=== PATIENT | female | born 1940 | race Caucasian/White ===

== ENCOUNTER 2016-06-21 08:40 | Day surgery (SDC) | payer OTHER ==
[2016-06-20 13:58] VITALS: BMI 17.2
--- NOTE | 2016-06-21 12:05 | HP ---
Past Medical History - Primary Care Physician PCP:: Ralf Simms - Admission Chief Complaint: post menopausal vaginal bleeding History of Present Illness: 76 yo f with hx breast ca, on tamoxifen, has vaginal bleeding ,admitted for hysteroscopy and d/c. rba discussed History Source: Patient Limitations to Obtaining History: Language Barrier - Past Medical History Cardiovascular: Yes: HTN, Hyperlipdemia - Past Surgical History Hx Myomectomy: No Hx Transabdominal Cerclage: No - Smoking History Smoking history: Never smoked Have you smoked in the past 12 months: No Aproximately how many cigarettes per day: 0 - Alcohol/Substance Use Hx Alcohol Use: No - Social History History of Recent Travel: No Home Medications - Allergies Allergies/Adverse Reactions: Allergies Allergy/AdvReac Type Severity Reaction Status Date / Time No Known Allergies Allergy Verified 04/29/16 14:25 - Home Medications Home Medications: Ambulatory Orders Atorvastatin Ca [Lipitor] 10 mg PO DAILY 09/01/14 Bimatoprost [Lumigan] 1 drop OU DAILY 09/01/14 Folic Acid - 1 mg PO DAILY 09/01/14 Aspirin [ASA -] 81 mg PO DAILY 04/29/16 Tamoxifen Citrate 20 mg PO DAILY 04/29/16 Review of Systems - Review of Systems Constitutional: reports: No Symptoms Eyes: reports: No Symptoms HENT: reports: No Symptoms Neck: reports: No Symptoms Cardiovascular: reports: No Symptoms Respiratory: reports: No Symptoms Gastrointestinal: reports: No Symptoms Genitourinary: reports: Vaginal Bleeding Breasts: reports: No Symptoms Reported Musculoskeletal: reports: No Symptoms Integumentary: reports: No Symptoms Endocrine: reports: No Symptoms Hematology/Lymphatic: reports: No Symptoms Psychiatric: reports: No Symptoms Physical Exam-LEG BREAKER Vital Signs: Vital Signs Temperature 97.6 F 06/21/16 09:30 Pulse Rate 78 06/21/16 09:30 Respiratory Rate 18 06/21/16 09:30 Blood Pressure 156/76 06/21/16 09:30 O2 Sat by Pulse Oximetry (%) 98 06/21/16 09:30 Constitutional: Yes: Well Nourished, No Distress, Calm Eyes: Yes: WNL, Conjunctiva Clear, EOM Intact HENT: Yes: WNL, Atraumatic, Normocephalic Neck: Yes: WNL, Supple, Trachea Midline Cardiovascular: Yes: WNL, Regular Rate and Rhythm Respiratory: Yes: WNL, Regular, CTA Bilaterally Gastrointestinal: Yes: WNL Renal/: Yes: WNL Pelvis: Yes: WNL External Genitalia: Yes: Normal Internal Exam Deferred: No Vaginal Exam: Yes: Other (atrophic) Cervix: Yes: Normal Uterus: Yes: Normal Adnexa: Not Palpable: Left, Right Breast(s): Yes: WNL Musculoskeletal: Yes: WNL Extremities: Yes: WNL Edema: No Integumentary: Yes: WNL Neurological: Yes: WNL, Alert, Oriented ...Motor Strength: WNL Psychiatric: Yes: WNL, Alert, Oriented Problem List - Problem (1) Postmenopausal vaginal bleeding Code(s): N95.0 - POSTMENOPAUSAL BLEEDING (2) Breast cancer Code(s): C50.919 - MALIGNANT NEOPLASM OF UNSP SITE OF UNSPECIFIED FEMALE BREAST Qualifiers: Patient gender: female Assessment/Plan for hysteroscopy d/c r/o endometrial cancer
[2016-06-21] MEDS ORDERED: PROPOFOL 20 ML ONE (12:09)
[2016-06-21] MEDS ORDERED: LACTATED RINGERS SOLUTION 1,000 ML IV SCH (12:45)
[2016-06-21] MEDS ORDERED: ONDANSETRON 4 MG/2 ML VIAL IVPUSH PRN (12:45)
[2016-06-21] MEDS ORDERED: oxyCODONE HCL 5 MG TABLET PO PRN ×2 (12:45→13:18)
[2016-06-21] MEDS ORDERED: IBUPROFEN 800 MG/8 ML IJ IVPB PRN (13:18)
[2016-06-21] MEDS ORDERED: IBUPROFEN 600 MG TABLET (FP) PO PRN (13:18)
[2016-06-21] MEDS ORDERED: ONDANSETRON 4 MG/2 ML VIAL IVPB PRN (13:18)
[2016-06-21] MEDS ORDERED: ELECTROLYTE-148 SOLN 1,000 ML IV SCH (13:30)
[2016-06-21 13:35] VITALS: TEMP 98.9
[2016-06-21 14:31] VITALS: BP 167/78; PULSE 68
--- NOTE | 2016-06-22 08:11 | OP ---
DATE OF OPERATION: 06/21/2016 PREOPERATIVE DIAGNOSIS: Postmenopausal bleeding. POSTOPERATIVE DIAGNOSIS: Postmenopausal bleeding. PROCEDURE: Hysteroscopy, dilatation and curettage, and endometrial polypectomy. SURGEON: Ralf Simms MD ANESTHESIA: General. ANESTHESIOLOGIST: Mack Chavis MD ESTIMATED BLOOD LOSS: 15 mL. DESCRIPTION OF PROCEDURE: The patient was taken to the operating room, and under adequate general anesthesia, examination under anesthesia revealed external genitalia to be normal. Vagina was normal. Cervix was clean, no lesion. Uterus was normal sized. Adnexa, no masses were palpable. Then, with a weighted speculum in the vagina, anterior lip of the cervix was grasped with a single-tooth tenaculum, and endocervical curetting was done. Uterine cavity was sounded to 7 cm. Then, hysteroscope was introduced. Visualization of the endocervical canal appeared to be normal. Endometrium was atrophic. There was a large polyp, approximately 3 cm, seen at the fundal area of the uterus. Both cornual regions were visualized. No other abnormality was seen. Then, cervix was gradually dilated with Hegar dilator, and the endometrial polyp was removed, and then reintroduction of hysteroscope into the uterus showed no other polyp, and polyp was removed in its entirety. No active bleeding was seen. Patient tolerated the procedure well, left the OR in good condition. RALF SIMMS M.D. [id number]
--- NOTE | 2016-06-22 12:37 | PATH ---
Surgical Pathology Report Patient Name: DESMOND HUITRON [facility]. Rec. #: [id number] /Age/Gender: 1940 (Age: 76) / F Account: [id number] Location: [facility] Taken: 06/21/2016 Received: 06/21/2016 Reported: 06/22/2016 Physicians: Ralf Simms M.D. Specimen(s) Received A: ENDOCERVICAL CURETTINGS B: ENDOMETRIAL POLYPS C: ENDOMETRIAL CURETTINGS Clinical History Postmenopausal bleeding Final Diagnosis A. ENDOCERVIX, CURETTING: BENIGN CERVICAL TISSUE B. ENDOMETRIUM, POLYPECTOMY: BENIGN ENDOMETRIAL POLYP C. ENDOMETRIUM, CURETTING: ATROPHIC ENDOMETRIUM. NO ENDOMETRIAL HYPERPLASIA OR CARCINOMA IDENTIFIED. Electronically Signed Luca Aleman M.D. Gross Description A. Received in formalin, labeled "endocervical curetting," is a 0.7 x 0.5 x 0.1 cm aggregate of guerrero soft tissue fragments admixed with blood-tinged mucous. The formalin is filtered and the specimen is entirely submitted in one cassette. B. Received in formalin, labeled "endometrial polyps," and are 4 pink-guerrero, polypoid portions of soft tissue ranging from 0.5-1.7 cm in greatest dimension. The specimens are submitted in toto in one cassette. C. Received in formalin, labeled "endometrial curettings," is a 1.1 x 1.0 x 0.2 cm aggregate of guerrero-brown soft tissue fragments. The formalin is filtered and the specimen is entirely submitted in one cassette. 06/21/201606/21/2016
== END 2016-06-21 14:20 | disposition home or self-care (01) ==
LOC: JASU-SURG 08:40
PROVIDERS: ATTEND Obstetrics & Gynecology
PROC: 0UB98ZX Excision of Uterus, Via Natural or Artificial Opening Endoscopic, Diagnostic (ICD-10-PCS; principal; 2016-06-21 11:00)
PROC: 0UDB8ZX Extraction of Endometrium, Via Natural or Artificial Opening Endoscopic, Diagnostic (ICD-10-PCS; 2016-06-21 11:00)
DX: N95.0 Postmenopausal bleeding (principal); N84.0 Polyp of corpus uteri
CPT/HCPCS: 88305-TC; 94760

== ENCOUNTER 2016-08-17 12:14 | Emergency (ER) | payer OTHER ==
[2016-08-17 12:19] VITALS: TEMP 98.2; BMI 16.8
--- NOTE | 2016-08-17 12:55 | PDOC ---
History of Present Illness - General Chief Complaint: Lightheaded Stated Complaint: DIZZINESS Time Seen by Provider: 08/17/16 12:49 History Source: Patient Exam Limitations: Language Barrier (Juana, the RN, was utilized as a marker delivery. ) - History of Present Illness Initial Comments: CHIEF COMPLAINT: 76 y/o afebrile female with PMH HLD and postmenopausal bleeding c/o vaginal bleeding for over a month. HISTORY OF PRESENT ILLNESS: The patient had a D&C performed by Dr. Simms on . She states she has had vaginal bleeding every day since then, changing her maxi pad 3x per day. She states this morning she began feeling a little lightheaded and that's why she decided to come in. She denies f/c, n/v/d, fall , LOC, CP, SOB, palpitations, abd pain, back pain. Vital signs on arrival are within normal limits. REVIEW OF SYSTEMS: GENERAL/CONSTITUTIONAL: No fever/chills. No weakness. No weight change. HEAD, EYES, EARS, NOSE AND THROAT: No change in vision. No ear pain or discharge. No sore throat. CARDIOVASCULAR: No chest pain or shortness of breath. RESPIRATORY: No cough, wheezing, or hemoptysis. GASTROINTESTINAL: No abd pain, nausea, vomiting, diarrhea. +vaginal bleeding GENITOURINARY: No dysuria, frequency, or change in urination. MUSCULOSKELETAL: No joint or muscle swelling or pain. No neck or back pain. SKIN: No rash or easy bruising. NEUROLOGIC: No headache, vertigo, loss of consciousness, or loss of sensation. PHYSICAL EXAM: GENERAL: The patient is awake, alert, and fully oriented, in no acute distress. The patient is thin, well appearing and ambulatory. HEAD: Normal with no signs of trauma. ENT: Pupils equal, round and reactive to light, extraocular movements intact, sclera anicteric, conjunctiva pink. Neck supple. LUNGS: Clear to auscultation bilaterally. Normal excursion. No respiratory distress or use of accessory muscles. CV: RRR, S1/S2, no MRG. Cap refill < 2 sec. ABDOMEN: Soft, non-distended, non-tender even to deep palpation, no hepatomegaly or splenomegaly, no masses. VAGINAL: Deferred EXTREMITIES: Normal range of motion, no edema. NEUROLOGICAL: Normal speech, normal gait. CN II-XII grossly intact. PSYCH: Normal mood, normal affect. SKIN: Warm, dry, normal turgor, no rashes or lesions noted. Past History - Past Medical History Allergies/Adverse Reactions: Allergies Allergy/AdvReac Type Severity Reaction Status Date / Time No Known Allergies Allergy Verified 08/17/16 12:19 Home Medications: Ambulatory Orders Atorvastatin Ca [Lipitor] 10 mg PO DAILY 09/01/14 Aspirin [ASA -] 81 mg PO DAILY 04/29/16 Cancer: Yes Cardiac Disorders: Yes HTN: Yes Hypercholesterolemia: Yes - Psycho/Social/Smoking Cessation Hx Suicidal Ideation: No Smoking History: Never smoked Have you smoked in the past 12 months: No Number of Cigarettes Smoked Daily: 0 Hx Alcohol Use: No Drug/Substance Use Hx: No Substance Use Type: None Hx Substance Use Treatment: No *Physical Exam - Vital Signs Last Vital Signs Temp Pulse Resp BP Pulse Ox 98.2 F 90 20 139/83 97 08/17/16 12:15 08/17/16 12:15 08/17/16 12:15 08/17/16 12:15 08/17/16 12:15 Heart Score/ECG Review - ECG Intrepretation Comment:: Twelve-lead EKG was performed and reviewed by Dr. uRiz. There is normal sinus rhythm with a normal rate. The axis is normal. The intervals are normal. There are no ST or T wave abnormalities. Impression: Normal twelve-lead EKG ED Treatment Course - LABORATORY CBC & Chemistry Diagram: 08/17/16 13:50 08/17/16 13:50 Medical Decision Making - Medical Decision Making A/P: 76 y/o afebrile female with post menopausal vaginal bleeding and dizziness today. Plan is as follows: 1. EKG 2. Labs 3. Transvaginal Ultrasound EKG normal Labs normal Transvaginal Ultrasound IMPRESSION: Fundal fibroid. Thickening and irregularity of the endometrium. Endometrial malignancy cannot be excluded. Right adnexal cyst. Gave the patient all of her results. She states she feels well with no weakness or lightheadedness. Explained to both her and her daughter she needs to f/u with Dr. Simms as soon as possible and return to the ER with any worsening or concerning symptoms. The patient verbalizes understanding of all instructions, has no further questions and is awaiting discharge. *DC/Admit/Observation/Transfer Diagnosis at time of Disposition: Postmenopausal vaginal bleeding - Discharge Dispostion Disposition: HOME Condition at time of disposition: Good - Referrals Referrals: Torey Enamorado MD [Primary Care Provider] - Ralf Simms MD [Staff Physician] - - Patient Instructions Printed Discharge Instructions: DI for Vaginal Bleeding Additional Instructions: Discharge Instructions: -Please follow up with Dr. Simms as soon as possible -REturn to the ER with any worsening or concerning symptoms
[2016-08-17 14:30] LABS: BASOPHIL 0.7 % (0-2.0); EOSINOPHIL 0.5 % (0-4.5); MCH 31.9 pg (25.7-33.7); MCHC 33.4 g/dl (32.0-36.0); MEAN CELL VOLUME 95.5 fl (80-96); MEAN PLT VOLUME 9.4 fl (7.5-11.1); NEUTROPHILS 69.3 % (42.8-82.8); PLATELET COUNT 231 K/MM3 (134-434); RDW 13.8 % (11.6-15.6); WHITE BLOOD COUNT 5.7 K/mm3 (4.0-10.0)
[2016-08-17 14:37] LABS: ALBUMIN 3.7 g/dl (3.4-5.0); ALK PHOS 78 U/L (45-117); ANION GAP 8 (8-16); BILIRUBIN,TOTAL 0.4 mg/dL (0.2-1.0); CALCIUM 8.8 mg/dL (8.5-10.1); CO2 28 mmol/L (21-32); CREATININE 0.9 mg/dL (0.55-1.02); GLUCOSE,RANDOM 89 mg/dL (74-106); SGOT/AST 24 U/L (15-37); SGPT/ALT 18 U/L (12-78); TOT PROT 7.2 g/dl (6.4-8.2)
[2016-08-17 14:48] LABS: INR 0.98 (0.82-1.09); PROTHROMBIN TIME (PATIENT) 10.8 SEC (9.98-11.88)
[2016-08-17 15:38] VITALS: BP 154/88; PULSE 60
--- NOTE | 2016-08-18 17:14 | EKG ---
Test Reason : Blood Pressure : / mmHG Vent. Rate : 074 BPM Atrial Rate : 074 BPM P-R Int : 140 ms QRS Dur : 076 ms QT Int : 426 ms P-R-T Axes : 077 -23 065 degrees QTc Int : 472 ms NORMAL SINUS RHYTHM NORMAL ECG WHEN COMPARED WITH ECG OF 27-SEP-2015 22:26, NO SIGNIFICANT CHANGE WAS FOUND Confirmed by JAIR BRENNAN MD ([id number]) on 08/18/2016 5:14:18 PM Referred By: Confirmed By:JAIR BRENNAN MD
== END 2016-08-17 16:09 | disposition home or self-care (01) ==
LOC: JER 12:14
DX: N95.0 Postmenopausal bleeding (principal); I10 Essential (primary) hypertension; I51.9 Heart disease, unspecified; E78.00 Pure hypercholesterolemia, unspecified; Z85.9 Personal history of malignant neoplasm, unspecified
CPT/HCPCS: 36415; 76830-TC; 80053; 85025; 85610; 86850; 86900; 86901; 93005; 93010; 99283-25

== ENCOUNTER 2016-09-26 09:27 | Emergency (ER) | payer OTHER ==
[2016-09-26 09:44] VITALS: TEMP 98.1; BMI 16.9
[2016-09-26 10:37] LABS: EOSINOPHIL 1.3 % (0-4.5); MCH 31.6 pg (25.7-33.7); MCHC 33.3 g/dl (32.0-36.0); MEAN PLT VOLUME 8.9 fl (7.5-11.1); NEUTROPHILS 74.3 % (42.8-82.8); PLATELET COUNT 233 K/MM3 (134-434); RDW 13.9 % (11.6-15.6); WHITE BLOOD COUNT 5.9 K/mm3 (4.0-10.0)
[2016-09-26 10:38] LABS: STOOL FOR OCCULT BLOOD NEGATIVE (NEGATIVE)
[2016-09-26 10:52] LABS: URINE APPEARANCE CLEAR; URINE BILIRUBIN NEGATIVE (NEGATIVE); URINE COLOR LTYELLOW; URINE GLUCOSE (UA) NEGATIVE (NEGATIVE); URINE KETONE NEGATIVE (NEGATIVE); URINE LEUK ESTERASE NEGATIVE (NEGATIVE); URINE NITRITE NEGATIVE (NEGATIVE); URINE PROTEIN NEGATIVE (NEGATIVE); URINE UROBILINOGEN NEGATIVE E.U./dl (0.2-1.0)
[2016-09-26 10:53] LABS: URINE BLOOD 1+ (NEGATIVE)
[2016-09-26 10:56] LABS: URINE MUCUS RARE; URINE RBC 2 /hpf (0-3); URINE WBC <1 /hpf (3-5)
[2016-09-26 11:01] LABS: ALBUMIN 3.6 g/dl (3.4-5.0); ALK PHOS 68 U/L (45-117); ANION GAP 8 (8-16); BILIRUBIN,TOTAL 0.5 mg/dL (0.2-1.0); CALCIUM 8.6 mg/dL (8.5-10.1); CO2 27 mmol/L (21-32); CREATININE 0.9 mg/dL (0.55-1.02); GLUCOSE,RANDOM 105 mg/dL (74-106); SGOT/AST 20 U/L (15-37); SGPT/ALT 15 U/L (12-78); TOT PROT 6.9 g/dl (6.4-8.2)
[2016-09-26 11:07] LABS: INR 0.99 (0.82-1.09); PROTHROMBIN TIME (PATIENT) 10.9 SEC (9.98-11.88)
--- NOTE | 2016-09-26 12:41 | PDOC ---
History of Present Illness - General Chief Complaint: Lightheaded Stated Complaint: LIGHTHEADED Time Seen by Provider: 09/26/16 10:08 - History of Present Illness Initial Comments: 09/26/16 12:41 CHIEF COMPLAINT: dizziness HISTORY OF PRESENT ILLNESS: 76 yo F with hx of PMH of HTN, HLD presents to ED with lightheadedness since this morning. Patient denies any pain, fever, chills , nausea, vomiting, diarrhea, rectal bleeding, and that "I just feel a little dizzy." No recent travel or sick contacts. PAST MEDICAL HISTORY: Denies past medical history FAMILY HISTORY: Denies SOCIAL HISTORY: Denies tobacco, alcohol, illicit drug use. SURGICAL HISTORY: Denies ALLERGIES: No known drug allergies REVIEW OF SYSTEMS General/Constitutional: Denies fever or chills. Denies weakness, weight change. HEENT: Denies change in vision. Denies ear pain or discharge. Denies sore throat. Cardiovascular: Denies chest pain or shortness of breath. Respiratory: Denies cough, wheezing, or hemoptysis. Gastrointestinal: Denies nausea, vomiting, diarrhea or constipation. Denies rectal bleeding. Genitourinary: Denies dysuria, frequency, or change in urination. Musculoskeletal: Denies joint or muscle swelling or pain. Denies neck or back pain. Skin and breasts: Denies rash or easy bruising. Neurologic: "Lightheaded this morning." Denies headache, vertigo, loss of consciousness, or loss of sensation. PHYSICAL EXAM General Appearance: Well-appearing, appropriately dressed. No apparent distress , no intoxication. HEENT: EOMI, PERRLA, normal ENT inspection, normal voice, TMs normal, pharynx normal. No conjunctival pallor. No photophobia, scleral icterus. Neck: Supple. Trachea midline. No tenderness, rigidity, carotid bruit, stridor , lymphadenopathy, or thyromegaly. Respiratory/Chest: Lungs CTAB. No shortness of breath, chest tenderness, respiratory distress, accessory muscle use. No crackles, rales, rhonchi, stridor , wheezing, dullness Cardiovascular: RRR. S1, S2. Vascular Pulses: Dorsalis-Pedis (R): 2+, Dorsalis-Pedis (L): 2+ Gastrointestinal/Abdominal: Normal bowel sounds. Abdomen soft, non-distended. No tenderness or rebound tenderness. No organomegaly, pulsatile mass, guarding , hernia, hepatomegaly, splenomegaly. Musculoskeletal/Extremities: Normal inspection. FROM of all extremities, normal capillary refill. Pelvis Stable. No CVA tenderness. No tenderness to extremities, pedal edema, swelling, erythema or deformity. Integumentary: Appropriate color, dry, warm. No cyanosis, erythema, jaundice or rash Neurologic: teacher tutor II-XII intact. Fully oriented, alert. Appropriate mood/affect. Motor strength 5/5. No appreciable EOM palsy, facial droop or sensory deficit. Past History - Past Medical History Allergies/Adverse Reactions: Allergies Allergy/AdvReac Type Severity Reaction Status Date / Time No Known Allergies Allergy Verified 09/26/16 09:33 Home Medications: Ambulatory Orders Atorvastatin Ca [Lipitor] 10 mg PO DAILY 09/01/14 Meclizine HCl 25 mg PO BID PRN #10 tablet 09/26/16 Tamoxifen Citrate 20 mg PO DAILY 09/26/16 Cancer: Yes Cardiac Disorders: Yes HTN: Yes Hypercholesterolemia: Yes - Psycho/Social/Smoking Cessation Hx Suicidal Ideation: No Smoking History: Never smoked Have you smoked in the past 12 months: No Number of Cigarettes Smoked Daily: 0 Hx Alcohol Use: No Drug/Substance Use Hx: No Substance Use Type: None Hx Substance Use Treatment: No *Physical Exam - Vital Signs Last Vital Signs Temp Pulse Resp BP Pulse Ox 98.1 F 73 19 165/82 95 09/26/16 09:34 09/26/16 10:51 09/26/16 09:34 09/26/16 10:51 09/26/16 09:34 ED Treatment Course - LABORATORY CBC & Chemistry Diagram: 09/26/16 10:30 09/26/16 10:30 - ADDITIONAL ORDERS Additional order review: Laboratory Results 09/26/16 09/26/16 09/26/16 10:30 10:30 10:30 INR 0.99 Sodium 142 Potassium 4.3 Chloride 107 Carbon Dioxide 27 Anion Gap 8 BUN 13 Creatinine 0.9 Creat Clearance w eGFR > 60 Random Glucose 105 Calcium 8.6 Total Bilirubin 0.5 D AST 20 ALT 15 Alkaline Phosphatase 68 Total Protein 6.9 Albumin 3.6 Urine Color Ltyellow Urine Appearance Clear Urine pH 7.0 Ur Specific [place] 1.012 Urine Protein Negative Urine Glucose (UA) Negative Urine Ketones Negative Urine Blood 1+ H Urine Nitrite Negative Urine Bilirubin Negative Urine Urobilinogen Negative Ur Leukocyte Esterase Negative Urine RBC 2 Urine WBC <1 Ur Epithelial Cells Rare Urine Mucus Rare Stool Occult Blood Negative 09/26/16 10:30 RBC 4.09 MCV 95.0 MCHC 33.3 RDW 13.9 MPV 8.9 Neutrophils % 74.3 Lymphocytes % 18.5 D Monocytes % 4.9 Eosinophils % 1.3 D Basophils % 1.0 - RADIOLOGY Radiology Studies Ordered: Category Date Time Status HEAD CT WITHOUT CONTRAST [CT] Stat CT Scan 09/26/16 11:36 Completed CHEST PA & LAT [RAD] Stat Radiology 09/26/16 10:26 Completed CHEST PA & LAT [RAD] Stat Radiology 09/26/16 11:28 Completed Medical Decision Making - Medical Decision Making 09/26/16 12:49 76 yo F with hx of PMH of HTN, HLD presents to ED with lightheadedness since this morning. -CBC, CMP, PT/INR -UA, UCx -Guaiac -Head CT Guaiac negative 09/26/16 12:[address] results: No definite CT evidence of acute intracranial pathology. The partially imaged maxillary and ethmoid sinuses demonstrate mucosal thickening which is probably mild to moderate consistent with chronic/subacute sinusitis. -Meclizine po Advised patient to take medications as prescribed and follow up with PMD this week. Advised patient of signs and symptoms for return to ER; patient verbalized understanding and agrees to plan. *DC/Admit/Observation/Transfer Diagnosis at time of Disposition: Vertigo - Discharge Dispostion Disposition: HOME Condition at time of disposition: Stable Admit: No - Prescriptions Prescriptions: Meclizine HCl 25 mg PO BID PRN #10 tablet PRN Reason: Vertigo - Referrals Referrals: Torey Enamorado MD [Primary Care Provider] - - Patient Instructions Printed Discharge Instructions: DI for Vertigo, DI for Benign Paroxysmal Positional Vertigo Additional Instructions: Please take medication as prescribed and follow up with Dr. Enamorado this week. If you experience any shortness of breath, palpitations, headache, fever , chills, nausea, vomiting, diarrhea, or any new or worsening symptoms, please return to the ER.
[2016-09-26] MEDS ORDERED: MECLIZINE HCL 25 MG TABLET (FP) PO ONE (12:43)
[2016-09-26] MEDS ORDERED: MECLIZINE HCL 25 MG TABLET (FP) ONE (12:46)
[2016-09-26 13:28] VITALS: BP 133/76; PULSE 66
--- NOTE | 2016-09-27 23:00 | EKG ---
Test Reason : Blood Pressure : / mmHG Vent. Rate : 075 BPM Atrial Rate : 075 BPM P-R Int : 138 ms QRS Dur : 078 ms QT Int : 408 ms P-R-T Axes : 069 -30 072 degrees QTc Int : 455 ms NORMAL SINUS RHYTHM LEFT AXIS DEVIATION NONSPECIFIC ST ABNORMALITY ABNORMAL ECG WHEN COMPARED WITH ECG OF 17-AUG-2016 13:04, NO SIGNIFICANT CHANGE WAS FOUND Confirmed by KELI VITAL MD ([id number]) on 09/27/2016 11:00:25 PM Referred By: Confirmed By:KELI VITAL MD
== END 2016-09-26 14:02 | disposition home or self-care (01) ==
LOC: JER 09:27
DX: R42 Dizziness and giddiness (principal); I10 Essential (primary) hypertension; E78.00 Pure hypercholesterolemia, unspecified
CPT/HCPCS: 36415; 70450-TC; 71020-TC; 80053; 81003; 81015; 82272; 85025; 85610; 87086; 93005; 93010; 99284-25

== ENCOUNTER 2017-01-19 11:17 | Emergency (ER) | payer OTHER ==
[2017-01-19 11:31] VITALS: TEMP 98.2; BMI 17.3
--- NOTE | 2017-01-19 12:14 | PDOC ---
History of Present Illness - General Chief Complaint: Vaginal Bleeding Stated Complaint: VAGINAL BLEEDING Time Seen by Provider: 01/19/17 11:55 History Source: Patient Exam Limitations: Language Barrier (Juana, the RN, was utilized as a pinball machine repairer) - History of Present Illness Initial Comments: CHIEF COMPLAINT: 76 y/o afebrile female with PMH HLD and postmenopausal bleeding c/o vaginal bleeding since yesterday. HISTORY OF PRESENT ILLNESS: The patient had a D&C performed by Dr. Simms on . She states she has had vaginal bleeding since yesterday. She denies f/c , n/v/d, fall, dizziness, weakness, LOC, CP, SOB, palpitations, abd pain, back pain, night sweats, unintentional weight loss. Vital signs on arrival are within normal limits. REVIEW OF SYSTEMS: GENERAL/CONSTITUTIONAL: No fever/chills. No weakness. No weight change. HEAD, EYES, EARS, NOSE AND THROAT: No change in vision. No ear pain or discharge. No sore throat. CARDIOVASCULAR: No chest pain or shortness of breath. RESPIRATORY: No cough, wheezing, or hemoptysis. GASTROINTESTINAL: No abd pain, nausea, vomiting, diarrhea. +vaginal bleeding GENITOURINARY: No dysuria, frequency, or change in urination. MUSCULOSKELETAL: No joint or muscle swelling or pain. No neck or back pain. SKIN: No rash or easy bruising. NEUROLOGIC: No headache, vertigo, loss of consciousness, or loss of sensation. PHYSICAL EXAM: GENERAL: The patient is awake, alert, and fully oriented, in no acute distress. The patient is thin, well appearing and ambulatory. HEAD: Normal with no signs of trauma. ENT: Pupils equal, round and reactive to light, extraocular movements intact, sclera anicteric, conjunctiva pink. Neck supple. LUNGS: Clear to auscultation bilaterally. Normal excursion. No respiratory distress or use of accessory muscles. CV: RRR, S1/S2, no MRG. Cap refill < 2 sec. ABDOMEN: Soft, non-distended, non-tender even to deep palpation, no hepatomegaly or splenomegaly, no masses. VAGINAL: Small amount of red blood in vaginal vault on speculum exam. Digitial exam reveals no adnexal tenderness or CMT. EXTREMITIES: Normal range of motion, no edema. NEUROLOGICAL: Normal speech, normal gait. CN II-XII grossly intact. PSYCH: Normal mood, normal affect. SKIN: Warm, dry, normal turgor, no rashes or lesions noted. Past History - Past Medical History Allergies/Adverse Reactions: Allergies Allergy/AdvReac Type Severity Reaction Status Date / Time No Known Allergies Allergy Verified 01/19/17 11:31 Home Medications: Ambulatory Orders Atorvastatin Ca [Lipitor] 10 mg PO DAILY 09/01/14 Tamoxifen Citrate 20 mg PO DAILY 09/26/16 Aspirin [ASA -] 81 mg PO DAILY 01/19/17 Bimatoprost [Lumigan] 1 drop IO HS 01/19/17 Cancer: Yes Cardiac Disorders: Yes HTN: Yes Hypercholesterolemia: Yes - Immunization History Immunization Up to Date: Yes - Psycho/Social/Smoking Cessation Hx Suicidal Ideation: No Smoking History: Never smoked Have you smoked in the past 12 months: No Number of Cigarettes Smoked Daily: 0 Hx Alcohol Use: No Drug/Substance Use Hx: No Substance Use Type: None Hx Substance Use Treatment: No *Physical Exam - Vital Signs Last Vital Signs Temp Pulse Resp BP Pulse Ox 98.2 F 84 18 148/75 98 01/19/17 11:28 01/19/17 11:28 01/19/17 11:28 01/19/17 11:28 01/19/17 11:28 ED Treatment Course - LABORATORY CBC & Chemistry Diagram: 01/19/17 12:53 01/19/17 12:53 Medical Decision Making - Medical Decision Making A/P: 76 y/o afebrile female with post menopausal vaginal bleeding and dizziness today. Plan is as follows: 1. EKG 2. Labs 3. Transvaginal Ultrasound Explained to both her and her daughter she needs to f/u with Dr. Simms as soon as possible and return to the ER with any worsening or concerning symptoms. The patient verbalizes understanding of all instructions, has no further questions and is awaiting discharge. Transvaginal Ultrasound IMPRESSION: Fundal fibroid. Markedly thickened and irregular endometrium. An endometrial malignancy cannot be excluded. Large right adnexal cyst. (Unchanged from prior of 08/17/16) Labs unremarkable. Spoke with the patient via THOM[facility] Arias (french translation) and explained to the patient that her results are very similar to the results we obtained in July of this year. Explained to her that we cannot determine if the reason for her bleeding is due to a tumor in her uterus without an MRI, which she was informed of the last time she was here. She states she doesn't care to know. I informed her that she may have vaginal bleeding from time to time because of the possible tumor/endometrial irregularity. I informed her that she needs to f /u with Dr. Simms and instructed her to call tomorrow to schedule follow up appointment. As the patient is currently hemodynamically stable and vaginal exam reveals minimal active bleeding she can be discharged to home. I instructed the patient to return to the ER immediately if she starts having heavy vaginal bleeding, dizziness, weakness or any other concerning symptoms. The patient verbalizes understanding of all instructions, has no further questions and is awaiting discharge. *DC/Admit/Observation/Transfer Diagnosis at time of Disposition: Postmenopausal vaginal bleeding - Discharge Dispostion Disposition: HOME Condition at time of disposition: Good - Referrals Referrals: Torey Enamorado MD [Primary Care Provider] - Ralf Simms MD [Staff Physician] - Call tomorrow - Patient Instructions Printed Discharge Instructions: DI for Vaginal Bleeding Additional Instructions: Discharge Instructions: -Your lab results and ultrasound results are similar to the results obtained on 08/17/16. -Your ultrasound shows what could be cancer in your uterus, but you would need to have an MRI to confirm that. -If you do have cancer in your uterus, that is what could be causing your vaginal bleeding -Please call Dr. Simms tomorrow to schedule a follow up appointment for within 1 week. -Return to the ER immediately if you experience very heavy vaginal bleeding with clots, weakness, dizziness or any other concerning symptoms. Instrucciones de tracy: -Tus resultados de laboratorio y resultados de ultrasonido son similares a los resultados obtenidos el 08/17/16. -Tu ultrasonido muestra lo que podra ser cncer en tu tero, moiz tendras que tener pradeep resonancia magntica para confirmar eso. -Si usted tiene cncer en el tero, eso es lo que podra estar causando ortega sangrado vaginal -Llamar al Dr. Demi haynes para programar pradeep sammie de seguimiento para dentro de pradeep semana. -Vuelva a la ricardo de emergencias inmediatamente si experimenta sangrado vaginal muy nancy con cogulos, debilidad, mareos o cualquier otro sntoma relacionado. Print Language: YI
[2017-01-19 13:14] LABS: BASOPHIL 0.9 % (0-2.0); EOSINOPHIL 0.8 % (0-4.5); MCH 31.4 pg (25.7-33.7); MCHC 33.2 g/dl (32.0-36.0); MEAN CELL VOLUME 94.8 fl (80-96); MEAN PLT VOLUME 9.9 fl (7.5-11.1); NEUTROPHILS 75.7 % (42.8-82.8); PLATELET COUNT 265 K/MM3 (134-434); RDW 14.4 % (11.6-15.6); WHITE BLOOD COUNT 7.3 K/mm3 (4.0-10.0)
[2017-01-19 13:15] LABS: URINE APPEARANCE SLCLOUDY; URINE BILIRUBIN NEGATIVE (NEGATIVE); URINE BLOOD 3+ (NEGATIVE); URINE COLOR YELLOW; URINE GLUCOSE (UA) NEGATIVE (NEGATIVE); URINE KETONE NEGATIVE (NEGATIVE); URINE LEUK ESTERASE TRACE (NEGATIVE); URINE NITRITE NEGATIVE (NEGATIVE); URINE PROTEIN NEGATIVE (NEGATIVE); URINE UROBILINOGEN NEGATIVE mg/dL (0.2-1.0)
[2017-01-19 13:19] LABS: URINE HYALINE CAST 3 /lpf; URINE MUCUS RARE; URINE RBC 632 /hpf (0-3); URINE WBC 43 /hpf (3-5)
[2017-01-19 13:39] LABS: ALBUMIN 3.9 g/dl (3.4-5.0); ANION GAP 9 (8-16); BILIRUBIN,TOTAL 0.5 mg/dL (0.2-1.0); CALCIUM 8.7 mg/dL (8.5-10.1); CO2 28 mmol/L (21-32); CREATININE 0.8 mg/dL (0.55-1.02); GLUCOSE,RANDOM 94 mg/dL (74-106); SGOT/AST 22 U/L (15-37); SGPT/ALT 14 U/L (12-78); TOT PROT 7.4 g/dl (6.4-8.2)
[2017-01-19 13:40] LABS: ALK PHOS 72 U/L (45-117)
[2017-01-19 17:32] VITALS: BP 152/86; PULSE 80
== END 2017-01-19 17:25 | disposition home or self-care (01) ==
LOC: JER 11:17
DX: N95.0 Postmenopausal bleeding (principal); D25.9 Leiomyoma of uterus, unspecified; I10 Essential (primary) hypertension; E78.00 Pure hypercholesterolemia, unspecified; Z85.9 Personal history of malignant neoplasm, unspecified
CPT/HCPCS: 36415; 76830-TC; 76856-TC; 80053; 81003; 81015; 85025; 87086; 99282-25

== ENCOUNTER 2017-03-25 09:58 | Emergency (ER) | payer OTHER ==
[2017-03-25 10:03] VITALS: BMI 17.6
[2017-03-25] MEDS ORDERED: SODIUM CHLORIDE 1,000 ML IV STA (11:05)
[2017-03-25 11:27] LABS: BASOPHIL 1.1 % (0-2.0); EOSINOPHIL 0.6 % (0-4.5); MCH 31.9 pg (25.7-33.7); MCHC 34.3 g/dl (32.0-36.0); MEAN CELL VOLUME 92.9 fl (80-96); PLATELET COUNT 258 K/MM3 (134-434); RDW 13.9 % (11.6-15.6); WHITE BLOOD COUNT 4.9 K/mm3 (4.0-10.0)
--- NOTE | 2017-03-25 11:40 | PDOC ---
History of Present Illness - General Chief Complaint: Lightheaded Stated Complaint: LIGHTHEADED Time Seen by Provider: 03/25/17 10:45 - History of Present Illness Initial Comments: 03/25/17 11:33 "The patient is a 77-year-old female with a significant past medical history of HTN and HLD, who presents to the ED with generalized weakness and dizziness that began yesterday. The patient states that as she was walking to the bathroom this morning she began to feel dizzy. She describes a lightheadedness without room-spinning sensation. Pt was able to ambulate steadily and did not feel as if she was going to pass out. She states that her symptoms abated completely when she sat down. However, she again felt lightheaded this morning and decided to come to ER. She reports that she experienced a similar episode in the past and was seen at this hospital. Pt currently denies any complaints. States that she is not feeling dizzy or weak at this time. Denies unilateral weakness, denies numbness. The patient denies any shortness of breath or chest pain. She denies any fever, chills, nausea, vomiting, diarrhea, or abdominal pain. She denies any changes in sensation. She denies having a hx or vertigo. PCP: Dr. Enamorado " Past History - Past Medical History Allergies/Adverse Reactions: Allergies Allergy/AdvReac Type Severity Reaction Status Date / Time No Known Allergies Allergy Verified 03/25/17 10:42 Home Medications: Ambulatory Orders Atorvastatin Ca [Lipitor] 10 mg PO DAILY 09/01/14 Aspirin [ASA -] 81 mg PO DAILY 01/19/17 Bimatoprost [Lumigan] 1 drop IO HS 01/19/17 Cancer: Yes Cardiac Disorders: Yes HTN: Yes Hypercholesterolemia: Yes - Immunization History Immunization Up to Date: Yes - Suicide/Smoking/Psychosocial Hx Smoking History: Never smoked Have you smoked in the past 12 months: No Number of Cigarettes Smoked Daily: 0 Information on smoking cessation initiated: No Hx Alcohol Use: No Drug/Substance Use Hx: No Substance Use Type: None Hx Substance Use Treatment: No Review of Systems - Review of Systems Comments:: 03/25/17 11:35 "GENERAL/CONSTITUTIONAL: (+)generalized weakness. No fever or chills. . HEAD, EYES, EARS, NOSE AND THROAT: No change in vision. No ear pain or discharge. No sore throat. CARDIOVASCULAR: No chest pain or shortness of breath. RESPIRATORY: No cough, wheezing, or hemoptysis. GASTROINTESTINAL: No nausea, vomiting, diarrhea or constipation. GENITOURINARY: No dysuria, frequency, or change in urination. MUSCULOSKELETAL: No joint or muscle swelling or pain. No neck or back pain. SKIN: No rash NEUROLOGIC: No headache, vertigo, loss of consciousness, or change in strength/ sensation. ENDOCRINE: No increased thirst. No abnormal weight change. HEMATOLOGIC/LYMPHATIC: No anemia, easy bleeding, or history of blood clots. ALLERGIC/IMMUNOLOGIC: No hives or skin allergy. " *Physical Exam - Vital Signs Last Vital Signs Temp Pulse Resp BP Pulse Ox 97.9 F 90 18 129/78 100 03/25/17 10:00 03/25/17 10:00 03/25/17 10:00 03/25/17 10:00 03/25/17 10:51 - Physical Exam Comments: 03/25/17 11:35 "GENERAL: Awake, alert, and fully oriented, in no acute distress HEAD: No signs of trauma EYES: PERRLA, EOMI, sclera anicteric, conjunctiva clear ENT: Auricles normal inspection, hearing grossly normal, nares patent, oropharynx clear without exudates. Moist mucosa NECK: Nontender, no stepoffs, Normal ROM, supple, no lymphadenopathy, JVD, or masses LUNGS: Breath sounds equal, clear to auscultation bilaterally. No wheezes, and no crackles HEART: Regular rate and rhythm, normal S1 and S2, no murmurs, rubs or gallops ABDOMEN: Soft, nontender, normoactive bowel sounds. No guarding, no rebound. No masses EXTREMITIES: Normal range of motion, no edema. No clubbing or cyanosis. No cords, erythema, or tenderness NEUROLOGICAL: Cranial nerves II through XII intact. 5/5 strength and sensation in all extremities, Normal speech, normal gait, normal hevbal-sfcp-aovsze, normal heel-segura, negative romberg SKIN: Warm, Dry, normal turgor, no rashes or lesions noted. " Heart Score/ECG Review - ECG Impressions Comment:: 03/25/17 11:36 NSR, no LAKE/STDs, no TWIs, axis wnl, intervals wnl ED Treatment Course - LABORATORY CBC & Chemistry Diagram: 03/25/17 11:06 03/25/17 11:06 - ADDITIONAL ORDERS Additional order review: 03/25/17 11:06 RBC 3.95 MCV 92.9 MCHC 34.3 RDW 13.9 MPV 9.0 Neutrophils % 72.0 Lymphocytes % 21.3 D Monocytes % 5.0 Eosinophils % 0.6 Basophils % 1.1 - RADIOLOGY Radiology Studies Ordered: Category Date Time Status CHEST PA & LAT [RAD] Stat Radiology 03/25/17 10:56 Ordered Medical Decision Making - Medical Decision Making 03/25/17 11:36 77 F with lightheadedness last night and this morning, now resolved. Pt with non -focal neuro exam, making CVA unlikely. Did not have any unilateral weakness or room-spinning to suggest TIA or vertigo. EKG with no ischemic changes. Pt with no CP/SOB to suggest ACS. Lightheadedness may be orthostatic due to resolution with sitting down. - Labs, trop - UA, CXR to r/o infectious process - [facility] - IVF 03/25/17 12:39 CBC, BMP 03/25/17 11:06 03/25/17 11:06 Labs unremarkable, trop negative. CXR clear. UA with 19 WBCs but negative nitrites. Will await leuk esterase and culture before initiating treatment. Pt re-evaluated s/p IVF. Continues to be asymptomatic. Pt ambulating with steady gait. Normal neuro exam. Normal vitals. Clinically stable for DC at this time. *DC/Admit/Observation/Transfer Diagnosis at time of Disposition: Dizziness - Discharge Dispostion Disposition: HOME - Referrals Referrals: Torey Enamorado MD [Primary Care Provider] - - Patient Instructions Printed Discharge Instructions: DI for Dizziness-Nonvertigo Additional Instructions: Call your primary doctor to make a follow up appointment within 1 week to have your dizziness further evaluated. If you experience worsening dizziness, headache, nausea, vomiting, or any other concerning symptoms, return to the ER immediately. - Attestations Physician Attestion: 03/25/17 12:46 I, Dr. Jan Blackwell MD, attest that this document has been prepared under my direction and personally reviewed by me in its entirety. I further attest, that it accurately reflects all work, treatment, procedures and medical decision -making performed by me.
[2017-03-25 11:42] LABS: URINE APPEARANCE SLCLOUDY; URINE BILIRUBIN NEGATIVE (NEGATIVE); URINE BLOOD 1+ (NEGATIVE); URINE COLOR YELLOW; URINE GLUCOSE (UA) NEGATIVE (NEGATIVE); URINE KETONE TRACE (NEGATIVE); URINE NITRITE NEGATIVE (NEGATIVE); URINE PROTEIN NEGATIVE (NEGATIVE); URINE UROBILINOGEN 4.0 E.U/dl mg/dL (0.2-1.0)
[2017-03-25 11:44] LABS: URINE BACTERIA RARE /hpf (NONE SEEN); URINE HYALINE CAST 16 /lpf; URINE MUCUS FEW; URINE RBC 2 /hpf (0-3); URINE WBC 19 /hpf (3-5)
[2017-03-25 11:49] LABS: CPK 78 IU/L (26-192); TROPONIN I < 0.02 ng/ml (0.00-0.05)
[2017-03-25 12:04] LABS: ALBUMIN 3.4 g/dl (3.4-5.0); ANION GAP 7 (8-16); BILIRUBIN,TOTAL 0.6 mg/dL (0.2-1.0); CALCIUM 8.2 mg/dL (8.5-10.1); CO2 29 mmol/L (21-32); CREATININE 0.9 mg/dL (0.55-1.02); GLUCOSE,RANDOM 96 mg/dL (74-106); SGOT/AST 19 U/L (15-37); SGPT/ALT 16 U/L (12-78)
[2017-03-25 12:12] LABS: ALK PHOS 66 U/L (45-117); THYROID STIMULATING HORMONE 1.26 uIU/ml (0.358-3.74)
[2017-03-25 13:48] VITALS: BP 136/78; PULSE 79; TEMP 98.2
[2017-03-25 15:45] LABS: URINE LEUK ESTERASE 1+ (NEGATIVE)
--- NOTE | 2017-03-26 09:05 | EKG ---
Test Reason : Blood Pressure : / mmHG Vent. Rate : 066 BPM Atrial Rate : 066 BPM P-R Int : 136 ms QRS Dur : 074 ms QT Int : 448 ms P-R-T Axes : 073 008 072 degrees QTc Int : 469 ms NORMAL SINUS RHYTHM NORMAL ECG WHEN COMPARED WITH ECG OF 26-SEP-2016 10:11, NO SIGNIFICANT CHANGE WAS FOUND Confirmed by DILLAN SHI MD ([id number]) on 03/26/2017 9:05:35 AM Referred By: Confirmed By:DILLAN SHI MD
== END 2017-03-25 13:59 | disposition home or self-care (01) ==
LOC: JER 09:58
PROC: 3E0337Z Introduction of Electrolytic and Water Balance Substance into Peripheral Vein, Percutaneous Approach (ICD-10-PCS; principal; 2017-03-25)
DX: R42 Dizziness and giddiness (principal); I10 Essential (primary) hypertension; E78.00 Pure hypercholesterolemia, unspecified; I51.9 Heart disease, unspecified
CPT/HCPCS: 36415; 71020-TC; 80053; 81003; 81015; 82550; 83880; 84443; 84484; 85025; 87086; 93005; 93010; 94640; 99283-25